=== PATIENT | male | born 1985 | race Hispanic/Latino ===

== ENCOUNTER 2017-12-17 15:44 | Emergency (ER) | payer SELFPAY ==
[2017-12-17 16:29] LABS: Absolute Lymphocytes (CBC) 1.8 K/uL (0.7-4.9); Absolute Monocytes 0.6 K/uL (0.1-1.3); Absolute Neutrophil 5.6 K/uL (1.8-8.0); Basophils % 0.8 % (0-1.3); Eosinophils % 1.2 % (0-4.4); Hematocrit 44.8 % (39.6-49.0); Lymphocytes % 22.2 % (15.3-44.8); MCH 31.9 pg (27.0-35.0); MCV 93.3 fL (80-100); MPV 8.7 fL (7.6-11.3); Monocytes % 7.2 % (3.3-12.3)
[2017-12-17] MEDS ORDERED: PANTOPRAZOLE 40 MG INJ ONE (16:34)
[2017-12-17] MEDS ORDERED: MORPHINE 4 MG/ML SYR ONE (16:34)
[2017-12-17] MEDS ORDERED: ONDANSETRON 4 MG/2 ML VIAL ONE (16:34)
[2017-12-17] MEDS ORDERED: NA CHLORIDE 0.9% 1,000 ML ONE (16:35)
[2017-12-17 16:56] LABS: ALT/SGPT 26 U/L (12-78); AST/SGOT 18 U/L (15-37); Alkaline Phosphatase 72 U/L (45-117); BUN Blood Urea Nitrogen 17 mg/dL (7-18); Bicarbonate 28 mmol/L (21-32); Bilirubin Direct 0.1 mg/dL (0-0.2); Bilirubin Total 0.4 mg/dL (0.2-1.0); Glucose Level 91 mg/dL (74-106); Lipase 175 U/L (73-393); Potassium 3.9 mmol/L (3.5-5.1); Protein, Total 7.3 g/dL (6.4-8.2); Sodium Level 141 mmol/L (136-145)
--- NOTE | 2017-12-17 17:41 | RAD REPORT ---
EXAM DESCRIPTION: CT - Abdomen Pelvis W Contrast - 12/17/2017 5:30 pm CLINICAL HISTORY: Abdominal pain COMPARISON: None. TECHNIQUE: Biphasic, helical CT imaging of the abdomen and pelvis was performed following 100 ml non -ionic IV contrast. Oral contrast was given. All CT scans are performed using dose optimization technique as appropriate and may include automated exposure control or mA/KV adjustment according to patient size. FINDINGS: No suspicious findings in the lung bases. The liver, spleen, and pancreas show no suspicious findings. No gallbladder abnormality seen. Gallsto lacey can be occult. There is mild prominence of the intrahepatic biliary tree without extrahepatic dil atation. Duodenal C-loop is incompletely distended by oral contrast. This limits accurate assessment of the duodenal mucosa or the ampulla. No peripancreatic stranding. Symmetric renal function is seen with no hydronephrosis or suspicious renal mass. No pyelonephritis o r acute renal parenchymal process. No adrenal gland suspicious finding. No urinary bladder abnormalit y seen. Prostate gland and seminal vesicles within normal range. No gastric dilatation or gastric wall thickening. Small bowel loops are not dilated. There are fluid- filled small bowel loops. A few scattered mesenteric lymph nodes are present. The appendix is normal. No acute colon process. No free air, free fluid or inflammatory stranding. No hernia, mass or bulk y lymphadenopathy. No suspicious bony findings. IMPRESSION: No appendicitis or surgically emergent finding. Fluid filled nondilated small bowel loops are present with a few mesenteric lymph nodes. Enteritis is certainly possible if there is a matching clinical presentation. Mild prominence of the intrahepatic biliary tree without extrahepatic biliary tree or gallbladder acu te finding. Significance is doubtful unless there are biliary obstructive clinical or laboratory find ings.
--- NOTE | 2017-12-17 17:50 | EDPHYS ---
Physician Documentation [facility] Name: Poncho Lord Age: 32 yrs Sex: Male : 1985 Arrival Date: 12/17/2017 Time: 15:49 Bed 28 Private MD: [facility] Physician Lisandro Fletcher HPI: 12/17 17:03 This 32 yrs old Male presents to ER via Ambulatory with complaints of david Abdominal Cramping. 17:03 The patient presents with abdominal pain in the epigastric area, in the upper abdomen. david Onset: The symptoms/episode began/occurred 2 day(s) ago. The symptoms do not radiate. Associated signs and symptoms: none. The symptoms are described as crampy. Modifying factors: The symptoms are alleviated by nothing. Severity of pain: At its worst the pain was mild moderate. The patient has not experienced similar symptoms in the past. Historical: - Allergies: 15:51 No Known Allergies; ch - Home Meds: 15:51 Omeprazole Oral [Active]; ch - PMHx: 15:51 stomach inflamation; ch - PSHx: 15:51 None; ch - Immunization history:: Adult Immunizations up to date, Flu vaccine is not up to date. - Social history:: Smoking status: Patient uses tobacco products, denies chronic smoking, but will smoke occasionally, Patient uses alcohol, weekly. - Ebola Screening: : Patient negative for fever greater than or equal to 101.5 degrees Fahrenheit, and additional compatible Ebola Virus Disease symptoms Patient denies exposure to infectious person Patient denies travel to an Ebola-affected area in the 21 days before illness onset No symptoms or risks identified at this time. - Family history:: not pertinent. ROS: 17:03 Constitutional: Negative for fever, chills, and weight loss, Eyes: Negative for injury, david pain, redness, and discharge, ENT: Negative for injury, pain, and discharge, Neck: Negative for injury, pain, and swelling, Cardiovascular: Negative for chest pain, palpitations, and edema, Respiratory: Negative for shortness of breath, cough, wheezing, and pleuritic chest pain, Back: Negative for injury and pain, : Negative for injury, bleeding, discharge, and swelling, MS/Extremity: Negative for injury and deformity, Skin: Negative for injury, rash, and discoloration, Neuro: Negative for headache, weakness, numbness, tingling, and seizure, Psych: Negative for depression, anxiety, suicide ideation, homicidal ideation, and hallucinations, Allergy/Immunology: Negative for hives, rash, and allergies, Endocrine: Negative for neck swelling, polydipsia, polyuria, polyphagia, and marked weight changes, Hematologic/Lymphatic: Negative for swollen nodes, abnormal bleeding, and unusual bruising. 17:03 Abdomen/GI: Positive for abdominal pain, of the epigastric area, right upper quadrant and left upper quadrant. Exam: 17:03 Constitutional: This is a well developed, well nourished patient who is awake, alert, david and in no acute distress. Head/Face: Normocephalic, atraumatic. Eyes: Pupils equal round and reactive to light, extra-ocular motions intact. Lids and lashes normal. Conjunctiva and sclera are non-icteric and not injected. Cornea within normal limits. Periorbital areas with no swelling, redness, or edema. ENT: Nares patent. No nasal discharge, no septal abnormalities noted. Tympanic membranes are normal and external auditory canals are clear. Oropharynx with no redness, swelling, or masses, exudates, or evidence of obstruction, uvula midline. Mucous membranes moist. Neck: Trachea midline, no thyromegaly or masses palpated, and no cervical lymphadenopathy. Supple, full range of motion without nuchal rigidity, or vertebral point tenderness. No Meningismus. Chest/axilla: Normal chest wall appearance and motion. Nontender with no deformity. No lesions are appreciated. Cardiovascular: Regular rate and rhythm with a normal S1 and S2. No gallops, murmurs, or rubs. Normal PMI, no JVD. No pulse deficits. Respiratory: Lungs have equal breath sounds bilaterally, clear to auscultation and percussion. No rales, rhonchi or wheezes noted. No increased work of breathing, no retractions or nasal flaring. Back: No spinal tenderness. No costovertebral tenderness. Full range of motion. Male : Normal genitalia with no discharge or lesions. Skin: Warm, dry with normal turgor. Normal color with no rashes, no lesions, and no evidence of cellulitis. MS/ Extremity: Pulses equal, no cyanosis. Neurovascular intact. Full, normal range of motion. Neuro: Awake and alert, GCS 15, oriented to person, place, time, and situation. Cranial nerves II-XII grossly intact. Motor strength 5/5 in all extremities. Sensory grossly intact. Cerebellar exam normal. Normal gait. Psych: Awake, alert, with orientation to person, place and time. Behavior, mood, and affect are within normal limits. 17:03 Abdomen/GI: Inspection: abdomen appears normal, Bowel sounds: normal, Palpation: mild abdominal tenderness, in the epigastric area, right upper quadrant and left upper quadrant, Liver: is firm, Hernia: not appreciated. Vital Signs: 15:51 BP 133 / 90; Pulse 64; Resp 14; Temp 98.9; Pulse Ox 100% on R/A; Weight 79.38 kg; ch Height 5 ft. 6 in. (167.64 cm); Pain 6/10; 16:00 BP 112 / 84; Pulse 66; Resp 15; Pulse Ox 100% ; kr2 18:15 BP 110 / 83; Pulse 66; Resp 15; Pulse Ox 100% ; kr2 15:51 Body Mass Index 28.25 (79.38 kg, 167.64 cm) MDM: 16:02 Patient medically screened. [facility] 17:05 Data reviewed: vital signs, nurses notes, lab test result(s), EKG, radiologic studies, [facility] CT scan, ultrasound. 12/17 16:03 Order name: Basic Metabolic Panel [facility] 12/17 16:03 Order name: CBC with Diff; Complete Time: 17:10 [facility] 12/17 16:03 Order name: Creatinine for Radiology; Complete Time: 17:10 [facility] 12/17 16:03 Order name: Hepatic Function; Complete Time: 17:10 [facility] 12/17 16:03 Order name: Lipase; Complete Time: 17:10 [facility] 12/17 16:04 Order name: Basic Metabolic Panel; Complete Time: 17:10 EDMS 12/17 17:03 Order name: CT Abd/Pelvis - W/Contrast; Complete Time: 17:49 [facility] 12/17 17:10 Order name: US Abdomen Limited [facility] 12/17 18:12 Order name: Urine Dipstick--Ancillary (enter results) 12/17 16:03 Order name: IV Saline Lock; Complete Time: 17:47 [facility] 12/17 16:03 Order name: Labs collected and sent; Complete Time: 17:47 [facility] Administered Medications: 16:37 Drug: Zofran 4 mg Route: IVP; Site: left antecubital; rv 18:16 Follow up: Response: No adverse reaction kr2 16:38 Drug: NS 0.9% 1000 ml Route: IV; Rate: 1 bolus; Site: left antecubital; rv 17:45 Follow up: Response: No adverse reaction; IV Status: Completed infusion kr2 16:38 Drug: ProTONIX 40 mg Route: IVP; Site: left antecubital; rv 18:16 Follow up: Response: No adverse reaction kr2 16:38 Drug: morphine 2 mg Route: IVP; Site: left antecubital; rv 17:00 Follow up: Response: No adverse reaction; Pain is decreased kr2 17:58 Not Given (Patient Refused): GI Cocktail without - (Maalox Suspension 30 ml, kr2 Lidocaine Liquid 2 % 15 ml) PO once 18:06 Not Given (Patient Refused): morphine 2 mg IVP once kr2 Disposition: 12/17/17 17:49 Discharged to Home. Impression: Abdominal tenderness, Gastro-esophageal reflux disease. - Condition is Stable. - Discharge Instructions: Abdominal Pain, Adult, Food Choices for Gastroesophageal Reflux Disease, Adult, Gastritis, Adult, Gastritis, Adult, [id number], Abdominal Pain, Adult, [id number], Food Choices for Gastroesophageal Reflux Disease, Adult, [id number]-[id number]. - Prescriptions for Bentyl 20 mg Oral Tablet - take 1 tablet by ORAL route every 6 hours As needed; 20 tablet. Protonix 40 mg Oral Tablet - take 1 tablet by ORAL route once daily; 30 tablet. Zofran 4 mg Oral Tablet - take 1 tablet by ORAL route every 12 hours As needed; 20 tablet. Cipro 500 mg Oral Tablet - take 1 tablet by ORAL route every 12 hours for 5 days; 10 tablet. - Medication Reconciliation Form, Thank You Letter, Antibiotic Education, Prescription Opioid Use form. - Follow up: Private Physician; When: 2 - 3 days; Reason: Recheck today's complaints, Continuance of care, Re-evaluation by your physician. Follow up: Chung Holt MD; When: 2 - 3 days; Reason: Recheck today's complaints, Re-evaluation by your physician. - Problem is new. - Symptoms have improved. Signatures: Dispatcher [employer] EDKiki Camargo RN Lisandro Garcia ch, MD MD cha Reaves, Karey, RN RN kr2 Ney Fry RN RN rv Corrections: (The following items were deleted from the chart) 17:12 17:03 Abdomen Complete+[id number].RAD.BRZ ordered. [facility] 17:50 17:49 12/17/2017 17:49 Discharged to Home. Impression: Abdominal tenderness; david Gastro-esophageal reflux disease. Condition is Stable. Discharge Instructions: Abdominal Pain, Adult, Food Choices for Gastroesophageal Reflux Disease, Adult, Gastritis, Adult, Gastritis, Adult, [id number], Abdominal Pain, Adult, [id number]-[id number], Food Choices for Gastroesophageal Reflux Disease, Adult, [id number]-ua-[id number]. Prescriptions for Bentyl 20 mg Oral Tablet - take 1 tablet by ORAL route every 6 hours As needed; 20 tablet, Protonix 40 mg Oral Tablet - take 1 tablet by ORAL route once daily; 30 tablet, Zofran 4 mg Oral Tablet - take 1 tablet by ORAL route every 12 hours As needed; 20 tablet. and Forms are Medication Reconciliation Form, Thank You Letter, Antibiotic Education, Prescription Opioid Use. Follow up: Private Physician; When: 2 - 3 days; Reason: Recheck today's complaints, Continuance of care, Re-evaluation by your physician. Problem is new. Symptoms have improved. [facility] 18:17 17:50 12/17/2017 17:49 Discharged to Home. Impression: Abdominal tenderness; kr2 Gastro-esophageal reflux disease. Condition is Stable. Discharge Instructions: Abdominal Pain, Adult, Food Choices for Gastroesophageal Reflux Disease, Adult, Gastritis, Adult, Gastritis, Adult, [id number], Abdominal Pain, Adult, [id number]-lu-[id number], Food Choices for Gastroesophageal Reflux Disease, Adult, [id number]. Prescriptions for Bentyl 20 mg Oral Tablet - take 1 tablet by ORAL route every 6 hours As needed; 20 tablet, Protonix 40 mg Oral Tablet - take 1 tablet by ORAL route once daily; 30 tablet, Zofran 4 mg Oral Tablet - take 1 tablet by ORAL route every 12 hours As needed; 20 tablet. and Forms are Medication Reconciliation Form, Thank You Letter, Antibiotic Education, Prescription Opioid Use. Follow up: Private Physician; When: 2 - 3 days; Reason: Recheck today's complaints, Continuance of care, Re-evaluation by your physician. Follow up: Chung Holt; When: 2 - 3 days; Reason: Recheck today's complaints, Re-evaluation by your physician. Problem is new. Symptoms have improved. david
--- NOTE | 2017-12-17 17:50 | ER ---
Nurse's Notes [facility] Name: Poncho Lord Age: 32 yrs Sex: Male : 1985 Arrival Date: 12/17/2017 Time: 15:49 Bed 28 Private MD: Diagnosis: Abdominal tenderness;Gastro-esophageal reflux disease Presentation: 12/17 15:50 Presenting complaint: Patient states: my upper stomach hurts and heart burn for the ch past 2-3 days. Transition of care: patient was not received from another setting of care. Onset of symptoms was December 14, 2017. Risk Assessment: Do you want to hurt yourself or someone else? Patient reports no desire to harm self or others. Initial Sepsis Screen: Does the patient meet any 2 criteria? No. Patient's initial sepsis screen is negative. Does the patient have a suspected source of infection? No. Patient's initial sepsis screen is negative. Care prior to arrival: None. 15:50 Method Of Arrival: Ambulatory 15:50 Acuity: ANUJ 3 Triage Assessment: 15:51 General: Appears in no apparent distress. comfortable, Behavior is calm, cooperative, appropriate for age. Pain: Complains of pain in epigastric area, right upper quadrant and left upper quadrant Pain currently is 6 out of 10 on a pain scale. GI: Reports upper abdominal pain, epigastric pain, "heart burn". Historical: - Allergies: 15:51 No Known Allergies; - Home Meds: 15:51 Omeprazole Oral [Active]; - PMHx: 15:51 stomach inflamation; - PSHx: 15:51 None; - Immunization history:: Adult Immunizations up to date, Flu vaccine is not up to date. - Social history:: Smoking status: Patient uses tobacco products, denies chronic smoking, but will smoke occasionally, Patient uses alcohol, weekly. - Ebola Screening: : Patient negative for fever greater than or equal to 101.5 degrees Fahrenheit, and additional compatible Ebola Virus Disease symptoms Patient denies exposure to infectious person Patient denies travel to an Ebola-affected area in the 21 days before illness onset No symptoms or risks identified at this time. - Family history:: not pertinent. Screenin:00 Abuse screen: Denies threats or abuse. Denies injuries from another. Nutritional kr2 screening: No deficits noted. Tuberculosis screening: No symptoms or risk factors identified. Fall Risk None identified. Assessment: 16:00 General: Appears in no apparent distress. uncomfortable, well groomed, well developed, kr2 well nourished, Behavior is calm, cooperative, appropriate for age. Pain: Complains of pain in epigastric area, right upper quadrant and left upper quadrant Pain does not radiate. Pain currently is 5 out of 10 on a pain scale. Quality of pain is described as pressure, tender, Is continuous, Alleviated by rest, Aggravated by repositioning. Neuro: Level of Consciousness is awake, alert, obeys commands, Oriented to person, place, time, situation, Appropriate for age. Cardiovascular: Capillary refill < 3 seconds in bilateral fingers Patient's skin is warm and dry. Respiratory: Airway is patent Respiratory effort is even, unlabored, Respiratory pattern is regular, symmetrical. GI: Bowel sounds present X 4 quads. Abd is soft X 4 quads Abdomen is tender to palpation in epigastric area. Derm: Skin is intact, is healthy with good turgor, Skin is pink, warm \\T\\ dry. Musculoskeletal: Circulation, motion, and sensation intact. 17:00 Reassessment: Patient appears in no apparent distress at this time. Patient and/or kr2 family updated on plan of care and expected duration. Pain level reassessed. Patient is alert, oriented x 3, equal unlabored respirations, skin warm/dry/pink. Patient states feeling better. 18:00 Reassessment: Patient appears in no apparent distress at this time. Patient and/or kr2 family updated on plan of care and expected duration. Pain level reassessed. Patient is alert, oriented x 3, equal unlabored respirations, skin warm/dry/pink. Patient states feeling better. Patient states symptoms have improved. Vital Signs: 15:51 BP 133 / 90; Pulse 64; Resp 14; Temp 98.9; Pulse Ox 100% on R/A; Weight 79.38 kg; Height 5 ft. 6 in. (167.64 cm); Pain 6/10; 16:00 BP 112 / 84; Pulse 66; Resp 15; Pulse Ox 100% ; kr2 18:15 BP 110 / 83; Pulse 66; Resp 15; Pulse Ox 100% ; kr2 15:51 Body Mass Index 28.25 (79.38 kg, 167.64 cm) ED Course: 15:49 Patient arrived in ED. 15:51 Triage completed. 15:51 Arm band placed on right wrist. Patient placed in an exam room, on a stretcher. 16:00 Patient has correct armband on for positive identification. Bed in low position. Call kr2 light in reach. Side rails up X 1. Pulse ox on. NIBP on. Door closed. Warm blanket given. Head of bed elevated. 16:02 Lisandro Fletcher MD is Attending Physician. [facility] 16:15 Inserted saline lock: 20 gauge in left antecubital area, using aseptic technique. Blood kr2 collected. 16:19 Anika Christensen, RN is Primary Nurse. kr2 17:30 CT completed. Patient tolerated procedure well. Patient moved to CT. Patient moved back nj from CT. 17:30 CT Abd/Pelvis - W/Contrast In Process Unspecified. EDMS 17:41 US Abdomen Limited In Process Unspecified. EDMS 17:50 Chung Holt MD is Referral Physician. david 18:11 No provider procedures requiring assistance completed. IV discontinued, intact, kr2 bleeding controlled, No redness/swelling at site. Pressure dressing applied. Administered Medications: 16:37 Drug: Zofran 4 mg Route: IVP; Site: left antecubital; rv 18:16 Follow up: Response: No adverse reaction kr2 16:38 Drug: NS 0.9% 1000 ml Route: IV; Rate: 1 bolus; Site: left antecubital; rv 17:45 Follow up: Response: No adverse reaction; IV Status: Completed infusion kr2 16:38 Drug: ProTONIX 40 mg Route: IVP; Site: left antecubital; rv 18:16 Follow up: Response: No adverse reaction kr2 16:38 Drug: morphine 2 mg Route: IVP; Site: left antecubital; rv 17:00 Follow up: Response: No adverse reaction; Pain is decreased kr2 17:58 Not Given (Patient Refused): GI Cocktail without - (Maalox Suspension 30 ml, kr2 Lidocaine Liquid 2 % 15 ml) PO once 18:06 Not Given (Patient Refused): morphine 2 mg IVP once kr2 Outcome: 17:49 Discharge ordered by . david 18:14 Discharged to home ambulatory. kr2 18:14 Condition: good 18:14 Discharge instructions given to patient, family, Instructed on discharge instructions, follow up and referral plans. medication usage, Demonstrated understanding of instructions, follow-up care, medications, Prescriptions given X 4. 18:17 Patient left the ED. kr2 Signatures: Dispatcher [employer] EDMS Kiki Oliveira, RN RN Lisandro Guzman MD MD cha Jordan, Nathan nj Reaves, Karey, RN RN kr2 Ney Fry RN RN rv
--- NOTE | 2017-12-17 17:53 | RAD REPORT ---
EXAM DESCRIPTION: US - Abdomen Exam Limited - 12/17/2017 5:41 pm CLINICAL HISTORY: ABD PAIN COMPARISON: No comparisons FINDINGS: The gallbladder demonstrates no gallstones. No pericholecystic fluid or gallbladder wall t hickening. The common bile duct is normal measuring 3 mm. The liver demonstrates no findings of intrahepatic biliary dilatation. IMPRESSION: Unremarkable examination.
[2017-12-17 19:16] LABS: Urine Blood NEGATIVE (NEG); Urine Glucose NEGATIVE (NEG); Urine Protein NEGATIVE (NEG)
[2017-12-18] MEDS ORDERED: FLUORESCEIN SODIUM 0.6 MG/WRAP ONE (22:38)
== END 2017-12-17 18:17 | disposition home or self-care (01) ==
LOC: ER 15:44
DX: K21.9 Gastro-esophageal reflux disease without esophagitis (principal); Z72.0 Tobacco use
CPT/HCPCS: 36415; 74177; 76705; 80048; 80076; 81003; 83690; 85025; 96361; 96374; 96375; 99284; C9113; J2405; J7030; Q9967